=== PATIENT | female | born 1990 ===

== ENCOUNTER 2016-12-18 12:07 | Day surgery (SDC) | payer OTHER ==
[2016-12-11 09:05] VITALS: BMI 32.4
[2016-12-18 12:51] VITALS: O2SAT 100
[2016-12-18] MEDS ORDERED: Lidocaine 1% Inj (20ml) ONE (14:19)
[2016-12-18] MEDS ORDERED: Propofol 10 mg/ml Inj (20 ML) ONE ×2 (14:19→14:31)
[2016-12-18] MEDS ORDERED: Sodium Chloride 0.9% 1,000 ML IV SCH (15:00)
[2016-12-18 15:29] VITALS: BP 132/97; PULSE 64; RESP 16; TEMP 97.7
== END 2016-12-18 15:55 | disposition home or self-care (01) ==
LOC: ENDO 12:07
PROVIDERS: ATTEND Internal Medicine
DX: K62.5 Hemorrhage of anus and rectum (principal); K64.8 Other hemorrhoids; K59.00 Constipation, unspecified
CPT/HCPCS: 45378; 84703; J2704; J7040 ×2